=== PATIENT | female | born 1990 | race Caucasian/White ===

== ENCOUNTER 2024-01-20 06:10 | Day surgery (SDC) | payer OTHER ==
[~2024-01-20] VITALS: Ht 167.6 cm; Wt 88.5 kg
[2024-01-20] MEDS ORDERED: LIDOCAINE 2% 100 MG/5 ML UJET TP ONE (07:26)
[2024-01-20] MEDS ORDERED: fentaNYL citrate 0.05 MG/ML VIAL ONE ×2 (07:43→08:23)
[2024-01-20] MEDS ORDERED: LIDOCAINE MPF 2% 100 MG/5 ML VIAL INJ ONE (07:44)
[2024-01-20] MEDS ORDERED: PROPOFOL 200 MG/20 ML VIAL IV ONE ×2 (07:44→08:22)
[2024-01-20] MEDS ORDERED: DEXAMETHASONE 4 MG/ML VIAL ONE (07:44)
[2024-01-20] MEDS ORDERED: MIDAZOLAM 2 MG/2 ML VIAL ONE (07:44)
[2024-01-20] MEDS ORDERED: SEVOFLURANE 250 ML BTL INH ONE (08:00)
[2024-01-20] MEDS: LIDOCAINE 1% 500 MG/50 ML VIAL ONE (09:20)
[2024-01-20] MEDS: BUPIVACAINE-MPF 0.25% 30 ML VIAL INJ ONE (09:20)
[2024-01-20] MEDS ORDERED: ONDANSETRON 4 MG/2 ML VIAL ONE (09:23)
[2024-01-20] MEDS ORDERED: HYDROmorphone PFS 2 MG/ML SYR ONE (09:25)
[2024-01-20] MEDS ORDERED: KETOROLAC 30 MG/ML VIAL ONE (11:49)
[2024-01-20] MEDS: KETOROLAC 30 MG/ML VIAL IVP ONE (11:50)
== END 2024-01-20 12:35 | disposition home or self-care (01) ==
LOC: MDS 06:10 → MMU 06:30 → MDS 12:35
PROVIDERS: ATTEND Podiatrist Foot & Ankle Surgery
DX: M21.611 Bunion of right foot (principal); M21.6X1 Other acquired deformities of right foot; M20.41 Other hammer toe(s) (acquired), right foot; F41.9 Anxiety disorder, unspecified; Z98.891 History of uterine scar from previous surgery; Z98.890 Other specified postprocedural states
CPT/HCPCS: 28110; 28285; 28299; C1713; J0690; J1100; J1171; J1885; J2003; J2250; J2405; J2704; J3010; J3490; J7060